=== PATIENT | male | born 1970 | race African-American/Black ===

== ENCOUNTER 2021-09-30 19:23 | Inpatient (IN) | payer OTHER ==
[~2021-09-30] VITALS: Ht 170.2 cm; Wt 121.1 kg
[2021-09-30] MEDS ORDERED: FUROSEMIDE 40MG/4ML VIAL IV ONE (19:45)
[2021-09-30] MEDS ORDERED: NITROGLYCERIN OINT 1GM/INCH UDPKT TD ONE (19:45)
[2021-09-30] MEDS ORDERED: ASPIRIN 81MG TABLET PO ONE (19:45)
[2021-09-30 20:26] LABS: BG BASE EXCESS -4.9 mmol/L (-2.0-2.0); BG CARBOXYHEMOGLOBIN 0.3 % (0.5-1.5); BG DEOXYHEMOGLOBIN 0.4 % (0.0-5.0); BG FRACTION INSPIRED OXYGEN 100; BG METHEMOGLOBIN 0.5 % (0.0-1.5); BG OXYGEN SATURATION 99.6 % (92.0-98.5); BG OXYHEMOGLOBIN 98.8 % (94.0-97.0); BG PCO2 48.1 mmHg (35.0-45.0); BG PH 7.279 (7.350-7.450); BG PO2 446.6 mmHg (75.0-100.0); BG SAMPLE SITE LEFT RADIAL; BG TOTAL HEMOGLOBIN 14.3 g/dL (12.0-18.0); BG VENT MODE MASK - BIPAP
[2021-09-30 20:34] LABS: BASOPHILS % 0.9 % (0.0-2.0); EOSINOPHILS % 7.1 % (0.0-5.0); HEMATOCRIT. 48.9 % (42.0-52.0); HEMOGLOBIN. 15.8 g/dL (14.0-18.0); LYMPHOCYTES % 43.1 % (20.0-50.0); MEAN CORPUSCULAR HEMOGLOBIN 27.7 pg (28.0-32.0); MEAN CORPUSCULAR VOLUME 85.9 fL (80.0-94.0); MEAN PLATELET VOLUME 10.1 fl (7.4-10.4); MONOCYTES % 7.2 % (2.0-8.0); NEUTROPHILS % 41.7 % (40.0-76.0); PLATELET 227 x1000/uL (130-400); RED BLOOD CELL COUNT 5.69 mill/uL (4.7-6.1)
[2021-09-30 23:10] LABS: CHLORIDE 112 mEq/L (98-107)
[2021-10-01] VITALS (12 sets, daily range): BP systolic 155–184; BP diastolic 11–132
[2021-10-01] MEDS ORDERED: DEXTROSE 50% WATER 50ML SYRINGE IV PRN (04:45)
[2021-10-01] MEDS: CLONIDINE 0.1MG TABLET PO PRN ×3 (05:09→17:54)
[2021-10-01] MEDS: BLOOD SUGAR DIAGNOSTIC STRIP TEST SCH ×4 (07:52→20:43)
[2021-10-01] MEDS: INSULIN LISPRO 100 UNITS/ML SUBCUT SCH ×4 (08:00→20:51)
[2021-10-01] MEDS ORDERED: ENOXAPARIN 40MG/0.4ML SYR SUBCUT SCH (09:00)
[2021-10-01] MEDS ORDERED: AMLODIPINE 5MG TABLET PO SCH (09:00)
[2021-10-01] MEDS ORDERED: BUME2TAB7 MT (09:59)
[2021-10-01] MEDS ORDERED: SPIR25TA6 MT (09:59)
[2021-10-01] MEDS ORDERED: HYDR-4135 MT (09:59)
[2021-10-01] MEDS ORDERED: CARV25TA47 MT (09:59)
[2021-10-01] MEDS ORDERED: CLOP75TA33 MT (09:59)
[2021-10-01] MEDS ORDERED: ACET-2708 MT (09:59)
[2021-10-01] MEDS ORDERED: ISOS20TA8 MT (09:59)
[2021-10-01] MEDS ORDERED: ATOR-2 MT (09:59)
[2021-10-01] MEDS ORDERED: ASPI-1406 MT (09:59)
[2021-10-01 10:22] LABS: *AMPHETAMINES SCREEN URINE NEGATIVE (NEGATIVE); *BARBITURATES SCREEN URINE NEGATIVE (NEGATIVE); *BENZODIAZEPINES SCREEN URINE NEGATIVE (NEGATIVE); *COCAINE SCREEN URINE NEGATIVE (NEGATIVE); CANNABINOID URINE SCREEN PRESUMTIVE POSITIVE (NEGATIVE); METHADONE URINE SCREEN NEGATIVE (NEGATIVE); OPIATES URINE SCREEN NEGATIVE (NEGATIVE); PHENCYCLIDINE URINE SCREEN NEGATIVE (NEGATIVE)
[2021-10-01 11:39] LABS: BASOPHILS % 0.8 % (0.0-2.0); EOSINOPHILS % 2.6 % (0.0-5.0); HEMATOCRIT. 41.3 % (42.0-52.0); HEMOGLOBIN. 13.6 g/dL (14.0-18.0); LYMPHOCYTES % 19.8 % (20.0-50.0); MEAN CORPUSCULAR HEMOGLOBIN 27.3 pg (28.0-32.0); MEAN CORPUSCULAR VOLUME 83.1 fL (80.0-94.0); MEAN PLATELET VOLUME 9.6 fl (7.4-10.4); MONOCYTES % 7.1 % (2.0-8.0); NEUTROPHILS % 69.7 % (40.0-76.0); PLATELET 180 x1000/uL (130-400); RED BLOOD CELL COUNT 4.97 mill/uL (4.7-6.1); RED CELL DISTRIBUTION WIDTH 16.3 % (11.6-14.6)
[2021-10-01 11:50] LABS: CHLORIDE 109 mEq/L (98-107)
[2021-10-01 12:03] LABS: HDL CHOLESTEROL 37 mg/dL (40-59); LDL CHOLESTEROL 77 mg/dL (5-100)
[2021-10-01] MEDS ORDERED: FUROSEMIDE 40MG/4ML VIAL IVP SCH (14:30)
[2021-10-01] MEDS ORDERED: LORAZEPAM 0.5MG TABLET PO PRN (14:30)
[2021-10-01] MEDS ORDERED: HYDROCODONE/ACETAMINOPHEN 5/325MG TABLET PO PRN (14:30)
[2021-10-01] MEDS ORDERED: ACETAMINOPHEN 325MG TABLET PO PRN ×2 (14:30)
[2021-10-01] MEDS ORDERED: ONDANSETRON HCL 4MG/2ML INJ IV PRN (14:30)
[2021-10-01] MEDS ORDERED: IPRATROPIUM/ALBUTEROL 0.5-3(2.5)MG/3ML NEB HHN PRN (14:30)
[2021-10-01] MEDS ORDERED: DOCUSATE SODIUM 100MG CAPSULE PO PRN (14:30)
[2021-10-01] MEDS: HYDRALAZINE HCL 50MG TABLET PO SCH ×2 (14:45→20:42)
[2021-10-01] MEDS ORDERED: NALOXONE HCL 0.4MG/ML VIAL IV PRN (14:45)
[2021-10-01] MEDS: ISOSORBIDE DINITRATE 10MG TABLET PO SCH ×2 (14:45→17:12)
[2021-10-01 15:33] LABS: BG BASE EXCESS -0.6 mmol/L (-2.0-2.0); BG CARBOXYHEMOGLOBIN 0.3 % (0.5-1.5); BG DEOXYHEMOGLOBIN 4.6 % (0.0-5.0); BG FRACTION INSPIRED OXYGEN 32; BG HCO3 ACT 23.2 mmol/L (22.0-26.0); BG METHEMOGLOBIN 0.3 % (0.0-1.5); BG OXYGEN SATURATION 95.4 % (92.0-98.5); BG OXYHEMOGLOBIN 94.8 % (94.0-97.0); BG PCO2 35.8 mmHg (35.0-45.0); BG PO2 78.9 mmHg (75.0-100.0); BG SAMPLE SITE RIGHT RADIAL; BG TOTAL HEMOGLOBIN 14.3 g/dL (12.0-18.0); BG VENT MODE NASAL CANNULA
[2021-10-01] MEDS: FUROSEMIDE 40MG/4ML VIAL IVP SCH (17:12)
[2021-10-01] MEDS: IPRATROPIUM/ALBUTEROL 0.5-3(2.5)MG/3ML NEB HHN SCH (20:38)
[2021-10-01] MEDS: BUDESONIDE 0.5MG/2ML NEB HHN SCH (20:38)
[2021-10-01] MEDS: ENOXAPARIN 30MG/0.3ML SYR SUBCUT SCH (20:42)
[2021-10-01] MEDS: CLOPIDOGREL 75MG TABLET PO SCH (20:43)
[2021-10-01 22:16] LABS: PHOSPHORUS 2.3 mg/dL (2.5-4.9)
[2021-10-02] VITALS (11 sets, daily range): BP systolic 145–196; BP diastolic 69–120
[2021-10-02] MEDS: CLONIDINE 0.1MG TABLET PO PRN ×2 (01:24→12:17)
[2021-10-02] MEDS: HYDRALAZINE 20MG/ML VIAL IV PRN ×3 (02:46→20:47)
[2021-10-02] MEDS ORDERED: HYDRALAZINE 20MG/ML VIAL IV SCH (04:30)
[2021-10-02] MEDS ORDERED: AMLODIPINE 10MG TABLET PO SCH (04:30)
[2021-10-02 05:42] LABS: BASOPHILS % 0.9 % (0.0-2.0); EOSINOPHILS % 6.7 % (0.0-5.0); HEMOGLOBIN. 14.5 g/dL (14.0-18.0); LYMPHOCYTES % 24.3 % (20.0-50.0); MEAN CORPUSCULAR HEMOGLOBIN 27.7 pg (28.0-32.0); MEAN CORPUSCULAR VOLUME 82.2 fL (80.0-94.0); MEAN PLATELET VOLUME 9.9 fl (7.4-10.4); MONOCYTES % 10.7 % (2.0-8.0); NEUTROPHILS % 57.4 % (40.0-76.0); PLATELET 185 x1000/uL (130-400); RED BLOOD CELL COUNT 5.23 mill/uL (4.7-6.1); RED CELL DISTRIBUTION WIDTH 16.2 % (11.6-14.6)
[2021-10-02] MEDS: FUROSEMIDE 40MG/4ML VIAL IVP SCH ×2 (05:52→17:10)
[2021-10-02] MEDS: HYDRALAZINE HCL 100MG TABLET PO SCH ×3 (05:54→22:33)
[2021-10-02] MEDS: BLOOD SUGAR DIAGNOSTIC STRIP TEST SCH ×4 (07:33→20:46)
[2021-10-02] MEDS: INSULIN LISPRO 100 UNITS/ML SUBCUT SCH ×4 (07:34→20:46)
[2021-10-02] MEDS: AMLODIPINE 10MG TABLET PO SCH (08:47)
[2021-10-02] MEDS: ISOSORBIDE DINITRATE 10MG TABLET PO SCH (08:47)
[2021-10-02] MEDS: ENOXAPARIN 30MG/0.3ML SYR SUBCUT SCH ×2 (08:47→22:33)
[2021-10-02] MEDS: ASPIRIN 81MG TABLET PO SCH (08:47)
[2021-10-02] MEDS: CLOPIDOGREL 75MG TABLET PO SCH (08:48)
[2021-10-02] MEDS ORDERED: POTASSIUM PHOS,M-BASIC-D-BASIC 20 MMOL in DEXT 5% WATER 243.3333 ML IV NR (09:00)
[2021-10-02] MEDS: BUDESONIDE 0.5MG/2ML NEB HHN SCH ×2 (09:16→20:30)
[2021-10-02] MEDS: IPRATROPIUM/ALBUTEROL 0.5-3(2.5)MG/3ML NEB HHN SCH ×2 (09:16→20:30)
[2021-10-02] MEDS: CARVEDILOL 6.25 MG TABLET PO SCH ×2 (10:23→20:47)
[2021-10-02 10:34] LABS: CLARITY URINE CLEAR (CLEAR); COLOR URINE YELLOW (YELLOW); KETONES URINE TRACE (NEGATIVE); LEUKOCYTE ESTERASE URINE NEGATIVE (NEGATIVE); NITRITE URINE NEGATIVE (NEGATIVE); OCCULT BLOOD URINE NEGATIVE (NEGATIVE); PH URINE 6.5 (4.5-8.0); PROTEIN URINE NEGATIVE (NEGATIVE); SPECIFIC GRAVITY URINE 1.008 (1.005-1.030); UROBILINOGEN URINE 0.2 E.U./dL (0.2-1.0)
[2021-10-02] MEDS: ISOSORBIDE DINITRATE 20MG TABLET PO SCH ×2 (12:16→17:10)
[2021-10-02] MEDS ORDERED: MAGNESIUM 2 G PREMIX 50 ML IV NR (13:00)
[2021-10-03] VITALS (7 sets, daily range): BP systolic 143–181; BP diastolic 63–108
[2021-10-03] MEDS: FUROSEMIDE 40MG/4ML VIAL IVP SCH ×2 (06:08→17:29)
[2021-10-03] MEDS: HYDRALAZINE HCL 100MG TABLET PO SCH ×2 (06:29→14:00)
[2021-10-03] MEDS: HYDRALAZINE 20MG/ML VIAL IV PRN (06:31)
[2021-10-03] MEDS: INSULIN LISPRO 100 UNITS/ML SUBCUT SCH ×3 (07:37→17:19)
[2021-10-03] MEDS: BLOOD SUGAR DIAGNOSTIC STRIP TEST SCH ×3 (07:37→17:19)
[2021-10-03] MEDS: IPRATROPIUM/ALBUTEROL 0.5-3(2.5)MG/3ML NEB HHN SCH ×2 (08:05→19:37)
[2021-10-03] MEDS: BUDESONIDE 0.5MG/2ML NEB HHN SCH ×2 (08:05→19:38)
[2021-10-03] MEDS: ENOXAPARIN 30MG/0.3ML SYR SUBCUT SCH (08:46)
[2021-10-03] MEDS: AMLODIPINE 10MG TABLET PO SCH (08:46)
[2021-10-03] MEDS: CLOPIDOGREL 75MG TABLET PO SCH (08:46)
[2021-10-03] MEDS: ISOSORBIDE DINITRATE 20MG TABLET PO SCH ×2 (08:46→12:23)
[2021-10-03] MEDS: CARVEDILOL 6.25 MG TABLET PO SCH (08:47)
[2021-10-03] MEDS: ASPIRIN 81MG TABLET PO SCH (08:47)
[2021-10-03] MEDS ORDERED: AMLO10TA80 PO (16:16)
[2021-10-03] MEDS ORDERED: ISOS60TA76 PO (16:16)
[2021-10-03] MEDS ORDERED: COR6 PO (16:16)
[2021-10-03] MEDS ORDERED: HYDR100T26 PO (16:16)
[2021-10-03] MEDS ORDERED: FURO40TA5 MT (16:16)
[2021-10-03] MEDS ORDERED: ISOSORBIDE MONONITRATE 60MG TABLET SR 24HR PO SCH (18:00)
[2021-10-04 09:07] LABS: ANTI-NUCLEAR ANTIBODIES DIRECT Negative (Negative)
== END 2021-10-03 23:28 | disposition home or self-care (01) | DRG 280 ==
LOC: ER 19:23 → MICUSO 23:43 → 5EST 10-01 00:38
PROVIDERS: ADMIT Internal Medicine; ATTEND Internal Medicine
PROC: 5A09357 Assistance with Respiratory Ventilation, Less than 24 Consecutive Hours, Continuous Positive Airway Pressure (ICD-10-PCS; principal; 2021-09-30)
PROC: 5A09357 Assistance with Respiratory Ventilation, Less than 24 Consecutive Hours, Continuous Positive Airway Pressure (ICD-10-PCS; 2021-10-01)
DX: I13.0 Hypertensive heart and chronic kidney disease with heart failure and stage 1 through stage 4 chronic kidney disease, or unspecified chronic kidney disease (principal); J96.01 Acute respiratory failure with hypoxia; I21.A1 Myocardial infarction type 2; I50.23 Acute on chronic systolic (congestive) heart failure; J96.02 Acute respiratory failure with hypercapnia; E87.2 Acidosis; I16.1 Hypertensive emergency; N17.9 Acute kidney failure, unspecified; Z68.41 Body mass index [BMI] 40.0-44.9, adult; I42.0 Dilated cardiomyopathy; D64.9 Anemia, unspecified; D72.10 Eosinophilia, unspecified; E66.9 Obesity, unspecified; F12.90 Cannabis use, unspecified, uncomplicated; E78.5 Hyperlipidemia, unspecified; Z20.822 Contact with and (suspected) exposure to COVID-19; J43.9 Emphysema, unspecified; E87.6 Hypokalemia; G47.33 Obstructive sleep apnea (adult) (pediatric); I25.10 Atherosclerotic heart disease of native coronary artery without angina pectoris; I49.3 Ventricular premature depolarization; N18.9 Chronic kidney disease, unspecified; Z95.5 Presence of coronary angioplasty implant and graft
CPT/HCPCS: 36415; 36600; 71045; 76770; 80048; 80053; 80061; 80305; 81003; 82375; 82805; 82962; 83036; 83735; 83880; 84100; 84443; 84484; 84550; 85025; 86038; 86160; 87426; 93005; 93306; 93970; 94640; 94660; 99291; J0360; J1650; J1815; J1940; J3475; J3490; J7060; J7626

== ENCOUNTER 2022-01-23 16:10 | Inpatient (IN) | payer OTHER ==
[~2022-01-23] VITALS: Ht 175.3 cm; Wt 93.6 kg
[~2022-01-23 16:10] MED LIST: ACET-2708 MT; AMLO10TA80 PO; ASPI-1406 MT; ATOR-2 MT; CLOP75TA33 MT; COR6 PO; FURO40TA5 MT; HYDR100T26 PO; ISOS60TA76 PO; SPIR25TA6 MT
[2022-01-23 17:50] LABS: BASOPHILS % 1.3 % (0.0-2.0); EOSINOPHILS % 3.6 % (0.0-5.0); HEMATOCRIT. 45.1 % (42.0-52.0); HEMOGLOBIN. 14.6 g/dL (14.0-18.0); LYMPHOCYTES % 16.7 % (20.0-50.0); MEAN CORPUSCULAR HEMOGLOBIN 27.2 pg (28.0-32.0); MEAN CORPUSCULAR VOLUME 84.2 fL (80.0-94.0); MEAN PLATELET VOLUME 8.4 fl (7.4-10.4); MONOCYTES % 11.5 % (2.0-8.0); NEUTROPHILS % 66.9 % (40.0-76.0); PLATELET 236 x1000/uL (130-400); RED BLOOD CELL COUNT 5.36 mill/uL (4.7-6.1); RED CELL DISTRIBUTION WIDTH 16.4 % (11.6-14.6)
[2022-01-23 17:59] LABS: CHLORIDE 110 mEq/L (98-107)
[2022-01-23] MEDS ORDERED: POTASSIUM CHLORIDE 20MEQ TABLET SR PO ONE (18:15)
[2022-01-23] MEDS ORDERED: ASPIRIN 325MG TABLET PO ONE (18:30)
[2022-01-23] MEDS ORDERED: FUROSEMIDE 40MG/4ML VIAL IVP ONE (18:30)
[2022-01-23] MEDS ORDERED: CLONIDINE 0.1MG TABLET PO PRN (23:45)
[2022-01-23] MEDS ORDERED: ACETAMINOPHEN 325MG TABLET PO PRN (23:45)
[2022-01-23 23:56] VITALS: BP 152/114
[2022-01-24] VITALS (7 sets, daily range): BP systolic 127–152; BP diastolic 80–114
[2022-01-24] MEDS ORDERED: POTASSIUM BICARB/CIT ACID 25 MEQ TABLET.EFF PO ONE
[2022-01-24] MEDS ORDERED: POTASSIUM CHLORIDE 20MEQ TABLET SR PO NR (00:15)
[2022-01-24] MEDS ORDERED: *PATIENT'S OWN MEDICATION STORAGE XX SCH (01:15)
[2022-01-24 07:36] LABS: BASOPHILS % 0.8 % (0.0-2.0); HEMATOCRIT. 44.3 % (42.0-52.0); HEMOGLOBIN. 14.4 g/dL (14.0-18.0); LYMPHOCYTES % 28.3 % (20.0-50.0); MEAN CORPUSCULAR HEMOGLOBIN 27.3 pg (28.0-32.0); MEAN CORPUSCULAR VOLUME 84.3 fL (80.0-94.0); MEAN PLATELET VOLUME 9.5 fl (7.4-10.4); MONOCYTES % 13.2 % (2.0-8.0); NEUTROPHILS % 54.7 % (40.0-76.0); PLATELET 235 x1000/uL (130-400); RED BLOOD CELL COUNT 5.26 mill/uL (4.7-6.1); RED CELL DISTRIBUTION WIDTH 16.7 % (11.6-14.6)
[2022-01-24] MEDS ORDERED: POTASSIUM BICARB/CIT ACID 25 MEQ TABLET.EFF PO SCH (09:00)
[2022-01-24] MEDS ORDERED: LOSARTAN POTASSIUM 50 MG TABLET PO SCH (09:00)
[2022-01-24] MEDS: CLOPIDOGREL 75MG TABLET PO SCH (09:08)
[2022-01-24] MEDS: FUROSEMIDE 40MG/4ML VIAL IVP SCH (09:08)
[2022-01-24] MEDS: CARVEDILOL 12.5MG TABLET PO SCH ×2 (09:08→21:24)
[2022-01-24] MEDS: PANTOPRAZOLE 40MG DR TABLET PO SCH (09:08)
[2022-01-24] MEDS: POTASSIUM CHLORIDE 20MEQ TABLET SR PO SCH (09:08)
[2022-01-24] MEDS: ASPIRIN 81MG TABLET PO SCH (09:08)
[2022-01-24] MEDS: CLONIDINE 0.1MG TABLET PO SCH ×2 (14:23→21:22)
[2022-01-24] MEDS: AMLODIPINE 10MG TABLET PO SCH (14:23)
[2022-01-24] MEDS: SPIRONOLACTONE 25MG TABLET PO SCH (14:26)
[2022-01-24] MEDS ORDERED: REGADENOSON 0.4 MG/5 ML IV NR (15:00)
[2022-01-24] MEDS ORDERED: ATORVASTATIN CALCIUM 40MG TABLET PO SCH ×2 (21:00)
[2022-01-24 21:50] LABS: CLARITY URINE CLEAR (CLEAR); COLOR URINE YELLOW (YELLOW); KETONES URINE TRACE (NEGATIVE); LEUKOCYTE ESTERASE URINE NEGATIVE (NEGATIVE); NITRITE URINE NEGATIVE (NEGATIVE); OCCULT BLOOD URINE NEGATIVE (NEGATIVE); PH URINE 5.5 (4.5-8.0); PROTEIN URINE 2+ (NEGATIVE); UROBILINOGEN URINE 0.2 E.U./dL (0.2-1.0)
[2022-01-24 22:16] LABS: *AMPHETAMINES SCREEN URINE NEGATIVE (NEGATIVE); *BARBITURATES SCREEN URINE NEGATIVE (NEGATIVE); *BENZODIAZEPINES SCREEN URINE NEGATIVE (NEGATIVE); *COCAINE SCREEN URINE NEGATIVE (NEGATIVE); CANNABINOID URINE SCREEN NEGATIVE (NEGATIVE); METHADONE URINE SCREEN NEGATIVE (NEGATIVE); OPIATES URINE SCREEN NEGATIVE (NEGATIVE); PHENCYCLIDINE URINE SCREEN NEGATIVE (NEGATIVE)
[2022-01-25] VITALS: BP 127/80
[2022-01-25 04:00] VITALS: BP 127/98
[2022-01-25] MEDS: CLONIDINE 0.1MG TABLET PO SCH ×2 (05:35→14:00)
[2022-01-25 07:08] LABS: BASOPHILS % 0.8 % (0.0-2.0); EOSINOPHILS % 5.9 % (0.0-5.0); HEMATOCRIT. 43.6 % (42.0-52.0); HEMOGLOBIN. 14.6 g/dL (14.0-18.0); LYMPHOCYTES % 28.6 % (20.0-50.0); MEAN CORPUSCULAR VOLUME 83.7 fL (80.0-94.0); MEAN PLATELET VOLUME 8.9 fl (7.4-10.4); MONOCYTES % 13.1 % (2.0-8.0); NEUTROPHILS % 51.6 % (40.0-76.0); PLATELET 226 x1000/uL (130-400); RED BLOOD CELL COUNT 5.21 mill/uL (4.7-6.1)
[2022-01-25] MEDS: PANTOPRAZOLE 40MG DR TABLET PO SCH (07:45)
[2022-01-25 08:00] VITALS: BP 139/94
[2022-01-25] MEDS ORDERED: POTASSIUM CHLORIDE 20MEQ TABLET SR PO SCH (09:45)
[2022-01-25] MEDS: POTASSIUM CHLORIDE 20MEQ TABLET SR PO SCH (10:17)
[2022-01-25 13:15] VITALS: BP 155/94
[2022-01-25] MEDS: AMLODIPINE 10MG TABLET PO SCH (13:27)
[2022-01-25] MEDS: SPIRONOLACTONE 25MG TABLET PO SCH (13:27)
[2022-01-25] MEDS: FUROSEMIDE 40MG/4ML VIAL IVP SCH (13:27)
[2022-01-25] MEDS: ASPIRIN 81MG TABLET PO SCH (13:27)
[2022-01-25] MEDS: CARVEDILOL 12.5MG TABLET PO SCH (13:28)
[2022-01-25] MEDS: CLOPIDOGREL 75MG TABLET PO SCH (13:28)
[2022-01-25] MEDS ORDERED: SIMV80TA90 MT (14:02)
[2022-01-25 15:49] VITALS: BP 143/94
== END 2022-01-25 17:20 | disposition home or self-care (01) | DRG 291 ==
LOC: ER 16:10 → 8WST 20:09 → EDBEDREQTM 20:16 → EDBEDREQ 20:16 → ENRESERV 21:40 → EDBEDREQ 23:26 → EDBEDREQTM 23:26
PROVIDERS: ADMIT Internal Medicine; ATTEND Internal Medicine
DX: I13.0 Hypertensive heart and chronic kidney disease with heart failure and stage 1 through stage 4 chronic kidney disease, or unspecified chronic kidney disease (principal); I50.23 Acute on chronic systolic (congestive) heart failure; J96.00 Acute respiratory failure, unspecified whether with hypoxia or hypercapnia; N17.9 Acute kidney failure, unspecified; N18.9 Chronic kidney disease, unspecified; I25.10 Atherosclerotic heart disease of native coronary artery without angina pectoris; E66.9 Obesity, unspecified; E78.5 Hyperlipidemia, unspecified; E87.6 Hypokalemia; Z20.822 Contact with and (suspected) exposure to COVID-19; Z68.30 Body mass index [BMI] 30.0-30.9, adult; Z88.0 Allergy status to penicillin; Z91.018 Allergy to other foods; Z79.82 Long term (current) use of aspirin; Z79.899 Other long term (current) drug therapy; Z79.02 Long term (current) use of antithrombotics/antiplatelets; Z91.14 Patient's other noncompliance with medication regimen; Z95.5 Presence of coronary angioplasty implant and graft
CPT/HCPCS: 36415; 71045; 78452; 80048; 80053; 80061; 80305; 81003; 83735; 83880; 84484; 85025; 87426; 93005; 93017; 93306; 99285; A9500; C9803; J1940; J2785

== ENCOUNTER 2022-02-17 18:04 | Emergency (ER) | payer OTHER ==
[~2022-02-17] VITALS: Ht 177.8 cm; Wt 100.0 kg
[~2022-02-17 18:04] MED LIST changes: -ATOR-2 MT; +SIMV80TA90 MT
[2022-02-17 18:07] VITALS: BP 1/1
[2022-02-17] MEDS ORDERED: EPINEPHRINE 0.1MG/ML (1:10,000) 10ML SYR ONE (18:17)
== END 2022-02-17 18:30 ==
LOC: ER 18:04
DX: I46.9 Cardiac arrest, cause unspecified (principal); I50.9 Heart failure, unspecified; Z79.899 Other long term (current) drug therapy
CPT/HCPCS: 31500; 82962; 99285; J3490